=== PATIENT | female | born 1985 | race Caucasian/White ===

== ENCOUNTER 2017-09-06 13:37 | Emergency (ER) | payer OTHER ==
[2017-09-06 13:57] VITALS: RESP 20; TEMP 97.5; O2SAT 99
[2017-09-06 14:08] VITALS: BP 173/128; PULSE 95
== END 2017-09-06 14:35 | disposition home or self-care (01) | DRG 607 ==
LOC: ED 13:37
DX: L50.9 Urticaria, unspecified (principal)
CPT/HCPCS: 99282

== ENCOUNTER 2019-03-01 21:20 | Emergency (ER) | payer SELFPAY ==
[2019-03-01] MEDS ORDERED: ACETAMINOPHEN 325 MG PO ONE (22:11)
[2019-03-01] MEDS ORDERED: IBUPROFEN 600 MG TAB PO ONE (22:11)
[2019-03-01] MEDS ORDERED: CEFTRIAXONE 1 GM PDS IM ONE (22:15)
[2019-03-01] MEDS ORDERED: CEFTRIAXONE 1 GM PDS ONE (22:16)
[2019-03-01] MEDS ORDERED: LIDOCAINE HCL 1% MPF 30 SOL ONE (22:16)
[2019-03-01 22:26] VITALS: TEMP 97.4
[2019-03-02 00:06] VITALS: BP 168/110; PULSE 88; RESP 18; O2SAT 97
== END 2019-03-01 22:59 | disposition home or self-care (01) | DRG 153 ==
LOC: ED 21:20
DX: H66.43 Suppurative otitis media, unspecified, bilateral (principal); I10 Essential (primary) hypertension
CPT/HCPCS: 96372; 99282; 99283; J0696; J2001